=== PATIENT | female | born 1985 | race Hispanic/Latino ===

== ENCOUNTER 2018-04-08 04:10 | Emergency (ER) | payer OTHER ==
[~2018-04-08] VITALS: Ht 157.5 cm; Wt 61.6 kg
[~2018-04-08 04:10] MED LIST: ASCORBIC ACID500 M3 PO; COMPAZINE25 M1 PR; ENDOCET 5-3251 EACH PO; FERROUS SULFAT325 MG PO; IBUPROFEN800 MG PO; METOCLOPRAMIDE10 MG PO; NIFEDIPINE10 MG PO; ONDANSETRON ODT4 MG PO; PHENERGAN25 MG PR; POTASSIUM CHLO20 MEQ PO; POTASSIUM20 MEQ/11 PO; PRENATAL TABLE1 EAC3 PO; PRENATAL TABLE1 EACH PO; PRILOSEC OTC20 MG PO; PROCARDIA10 MG PO; PROTONIX40 MG PO; ZANTAC150 MG PO
[2018-04-08 05:03] LABS: BASOPHIL (%) 0.3 % (0-1); EOSINOPHIL (%) 0 % (0-5); HEMATOCRIT 36.8 % (36.0-46.0); HEMOGLOBIN 12.8 G/DL (11.9-15.5); IMMATURE GRANULOCYTE (%) 0.5 % (0.0-0.7); LYMPHOCYTE (%) 7.6 % (15-42); LYMPHOCYTE COUNT 1.2 K/uL (1.0-2.8); MCH 30.6 PG (29.0-34.0); MCHC 34.8 G/DL (30.0-36.0); MONOCYTE (%) 3.8 % (3-12); MONOCYTE COUNT 0.6 K/uL (0-0.8); NEUTROPHIL (%) 87.8 % (45-76); NEUTROPHIL COUNT 13.7 K/uL (1.8-6.4); PLATELET COUNT 129 K/uL (156-360); RBC DIS.WIDTH-CV 12.2 % (11.8-14.6); RED BLOOD COUNT 4.18 M/uL (3.80-5.20); WHITE BLOOD COUNT 15.6 K/uL (4.1-10.2)
[2018-04-08 05:13] LABS: ALBUMIN 4.3 g/dL (3.2-4.8); CHLORIDE 108 mEq/L (99-109); POTASSIUM 3.8 mEq/L (3.7-5.4); SODIUM 139 mEq/L (136-147)
[2018-04-08 05:16] LABS: GLUCOSE 171 mg/dL (70-99); TOTAL PROTEIN 6.6 g/dL (6.4-8.3)
[2018-04-08 05:18] LABS: TOTAL BILIRUBIN 0.6 mg/dL (0.0-1.0)
[2018-04-08 05:19] LABS: ALKALINE PHOSPHATASE 62 IU/L (3-129); CREATININE 0.7 mg/dL (0.6-1.3); GFR ESTIMATE (CALCULATED) > 59 mL/min/
[2018-04-08 05:20] LABS: UREA NITROGEN (BUN) 9 mg/dL (9-23)
[2018-04-08 05:21] LABS: AST (GOT) 18 IU/L (2-34)
[2018-04-08 05:22] LABS: ALT (GPT) 15 IU/L (3-49)
[2018-04-08 05:23] LABS: LIPASE 2 U/L (1.0-51.0)
[2018-04-08 05:28] LABS: QUANTITATIVE HCG < 4.0 MIU/ML
[2018-04-08 06:04] LABS: APPEARANCE CLEAR ((CLEAR)); BILIRUBIN NEGATIVE; BLOOD NEGATIVE; COLOR YELLOW ((YELLOW)); GLUCOSE (STRIP) 50; KETONES 80; LEUKOCYTES NEGATIVE; NITRITE NEGATIVE; PROTEIN (STRIP) 100; SPECIFIC GRAVITY 1.029 (1.000-1.030); UROBILINOGEN 0.2 MG/DL (0.2-1.0)
[2018-04-08 06:07] LABS: BACTERIA RARE /HPF; EPITHELIAL CELLS RARE /HPF; MUCUS 2+ /LPF; RED BLOOD CELLS 30-40 /HPF (0-5); UCUL ADDED? NO; WHITE BLOOD CELLS 0-5 /HPF (0-5)
[2018-04-08] MEDS ORDERED: ZOFRAN4 MG PO (06:54)
[2018-04-08 07:22] VITALS: BP 126/65
== END 2018-04-08 07:22 | disposition home or self-care (01) ==
LOC: EME 04:10
PROVIDERS: Emergency Medicine
DX: R11.2 Nausea with vomiting, unspecified (principal); R10.9 Unspecified abdominal pain; I10 Essential (primary) hypertension
CPT/HCPCS: 74177; 80053; 81003; 83690; 84702; 85025; 99281; 99284; J0780; J2405; J2765; J3010; J7030